=== PATIENT | male | born 1955 | race Caucasian/White ===

== ENCOUNTER 2022-09-27 12:33 | Inpatient (IN) | payer MEDICARE, BC ==
[~2022-09-27] VITALS: Ht 182.9 cm; Wt 76.7 kg
[2022-09-27] MEDS ORDERED: MAGNESIUM HYDROXIDE 30 ML UDC PO PRN (13:30)
[2022-09-27] MEDS ORDERED: BLOOD SUGAR DIAGNOSTIC 1 EACH STRIP IN ONE (13:30)
[2022-09-27] MEDS ORDERED: ZOLPIDEM TARTRATE 5 MG TABLET PO PRN (13:30)
[2022-09-27] MEDS ORDERED: MAG HYDROX/AL HYDROX/SIMETH 30 ML UDC PO PRN (13:30)
[2022-09-27] MEDS ORDERED: ACETAMINOPHEN 325 MG TABLET PO PRN (13:30)
[2022-09-27] MEDS ORDERED: NORT25CA PO (14:11)
[2022-09-27] MEDS ORDERED: PROP10TA10 PO (14:11)
[2022-09-27] MEDS ORDERED: TRAM50TA2 PO (14:11)
[2022-09-27] MEDS ORDERED: LOSA1TAB36 PO (14:11)
[2022-09-27] MEDS ORDERED: LORA-259 PO (14:11)
[2022-09-27] MEDS ORDERED: NORT10CA PO (14:11)
[2022-09-27] MEDS ORDERED: AMLO-212 PO (14:11)
[2022-09-27] MEDS ORDERED: ALPR0.25 PO (14:11)
[2022-09-27] MEDS ORDERED: METH750T3 PO (14:11)
--- NOTE | 2022-09-27 14:12 | NUR ---
RN-CO: PATIENT IS COOPERATIVE , ALERT AND ORIENTED X 3-4. DURING ADMISSION,HE HAS APPROPRIATE AFFECT AND WELL GROOMED. LOOKS EASILY OVERWHELMED. HE STATED HE IS DEPRESSED AND EASILY GETS FRUSTRATED BECAUSE OF HIS BODY PAIN AND IF THINGS ARE DISORGANIZED.HE DENIED SI. HI, AH,VH. NOTIFIED DR WESTBROOK AND ORDER TO PUT HIS ADMITTING ORDERS,NOTED AND CARRIED OUT. PATIENT BEFORE ENTERING GPS UNIT SIGNED THE VOLUNTARY FORM. DISCUSSED HIS RIGHTS A PATIENT AND BOOKLET WAS GIVEN. ALL BELONGINGS WERE SCREENED FROM [employer] AND WAS KEPT IN [address]. HIS VALUABLES WERE TAKEN TO SAFE. [employer]plITTER ORIENTED HIM IN THEUNIT, PT CONTRACTED FOR SAFETY.
--- NOTE | 2022-09-27 14:15 | NUR ---
ANABELLE Initial Discharge Note: Patient will discharge back home located at [address], [place] [address]; ([phone]). Pt stated that he lives with Belle ([phone]) but reported that she is currently at a facility due to health issues. He reported he would want to return back home upon discharge. ANABELLE will work with the MD, family, and pt to help coordinate appropriate discharge.
--- NOTE | 2022-09-27 14:15 | NUR ---
ANABELLE Clinical Note: Pt is a voluntary pt. Pt was brought to the hospital due to feeling depressed and having suicidal thoughts. Patient will discharge back home located at [address] [place] [address]; ([phone]). Pt stated that he lives with Belle ([phone]) but reported that she is currently at a facility due to health issues. He reported he would want to return back home upon discharge.
--- NOTE | 2022-09-27 15:17 | NUR ---
ANABELLE Family Contact: ANABELLE spoke with patient's Belle ([phone]) and discussed patient's who stated that she is at a residential program currently getting her treatment. She stated that pt has been sober for 8 years but he has his moments to wanting to drink. 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 She shared that he has been depressed but she has a lot personal problems herself and is unable to care for him. She stated that she has turned into his mother. She requested for this writer editor to find pt a residential program.
--- NOTE | 2022-09-27 15:29 | NUR ---
Social Work Note/Substance Abuse Intervention: Patient was provided with a brief substance abuse intervention and referred to [facility] ([phone]), [facility] ([phone]), and [facility] ([phone]) for abusing xanax and ativan.
[2022-09-27 16:00] VITALS: BP 122/72
--- NOTE | 2022-09-27 16:08 | NUR ---
RN-CO: Dr Marquez notified to reconcile home meds.
[2022-09-27] MEDS: LORAZEPAM 1 MG TABLET PO PRN (17:17)
[2022-09-27] MEDS ORDERED: METHOCARBAMOL (750MG) 750 MG TABLET PO PRN (17:30)
[2022-09-27] MEDS ORDERED: TRAMADOL HCL 50 MG TABLET PO PRN (17:30)
[2022-09-27] MEDS ORDERED: PROPRANOLOL HCL 10 MG TABLET PO PRN (17:30)
--- NOTE | 2022-09-27 18:39 | NUR ---
RN NOTES PT REQUESTS TO HAVE HIS 'SOUND MACHINE' WHICH HE USES FOR HIS TINNITUS, EXPLAINED UNIT'S PROTOCOL REGARDING PT'S BELONGINGS BUT STILL WOULD LIKE TO HAVE IT, DR. WESTBROOK INFORMED AND ORDERED THAT PT MAY USE IT, PT SIGNED A WAIVER THAT SAYS THAT HOSPITAL IS NOT RESPONSIBLE FOR IT'S LOSS OR DAMAGE WHILE PT IS USING IT, PT'S 'SOUND MACHINE' GIVEN TO PT.
--- NOTE | 2022-09-27 19:04 | NUR ---
RN CLOSING NOTE PT AWAKE IN BED RESTING. ABLE TO MAKE NEEDS KNOWN. STATES HE IS STILL DEPRESSED BUT THAT MEDS HELPED WITH ANXIETY. PT NOT EXPERIENCING ANY CARDIAC OR RESPIRATORY DISTRESS. ALL NEEDS MET AT THIS TIME. WILL ENDORSE NATANAEL TO GLASS SCULLION NURSE.
--- NOTE | 2022-09-27 19:06 | NUR ---
RN CLOSING NOTE PT SLEEPING IN BED, RESPONDS TO NAME. HAS CONFUSION AND CONTINUES TO REFUSE MEDICATION AND FOOD. EXPLAINED THE BENEFITS AND RISKS OF DENYING MEDS AND FOOD. PT BECAME UPSET AND IRRITATED. PT NOT EXPERIENCING ANY CARDIAC OR RESPIRATORY DISTRESS. NO PAIN NOTED AT THIS TIME. ALL NEEDS MET AT THIS TIME. WILL ENDORSE NATANAEL TO POCKET FLAP CREASING MACHINE OPERATOR NURSE.
--- NOTE | 2022-09-27 20:07 | NUR ---
RN notes Called and spoke with Pharmacist regarding losartan to adjust the time. Pt informed that Pt is taking losartan at 1900. Pharmacist adjusted the time. Will continue to monitor.
[2022-09-27 20:11] VITALS: BP 147/90
--- NOTE | 2022-09-27 20:22 | NUR ---
RN notes Pt is complaining of back pain and requesting pain meds. administered tramadol 50 mg/1 tab/po/prn per ordered per Pt' requested for pain. VS is stable. will continue to monitor.
[2022-09-27] MEDS ORDERED: LOSARTAN/HCTZ 50-12.5MG/ 1 EA TABLET PO SCH ×3 (21:00→22:00)
--- NOTE | 2022-09-28 01:01 | NUR ---
RN notes Pt is complaining of headache and requesting med. administered tylenol 650 mg/po/prn as ordered for headache.
[2022-09-28] MEDS: LORAZEPAM 1 MG TABLET PO PRN (03:44)
--- NOTE | 2022-09-28 03:47 | NUR ---
RN notes Pt is feeling anxious and requesting med. administered ativan/po/prn as ordered per Pt requested. safety precautions is maintained. will continue to monitor.
[2022-09-28 08:00] VITALS: BP 129/89
[2022-09-28 08:04] LABS: ALBUMIN 3.6 g/dL (3.4-5.0); BILIRUBIN,TOTAL 0.7 mg/dL (0.2-1.0); CALCIUM, SERUM 9.5 mg/dL (8.5-10.1); CREATININE 0.8 mg/dL (0.6-1.3); POTASSIUM 3.6 mmol/L (3.5-5.1); TOTAL PROTEIN, SERUM 6.6 g/dL (6.4-8.2)
[2022-09-28 08:08] LABS: CHOLESTEROL 176 mg/dL (<200); HDL CHOLESTEROL 64 mg/dL (40-60); LDL 107 mg/dL (0-99); TRIGLYCERIDES 57 mg/dL (30-150)
[2022-09-28 08:51] VITALS: BP 129/89
[2022-09-28] MEDS ORDERED: AMLODIPINE BESYLATE 5 MG TABLET PO SCH (09:00)
[2022-09-28] MEDS ORDERED: GABAPENTIN 100 MG CAPSULE PO SCH (10:00)
[2022-09-28] MEDS ORDERED: DULOXETINE HCL 30 MG CAPSULE.DR PO SCH (10:00)
--- NOTE | 2022-09-28 10:12 | NUR ---
ANABELLE Note: SW gave pt options of residential programs that he was requesting. [facility] is unable to take pt's insurance ([phone]) spoke with Jaspreet who stated that they can have a phone interview with pt at 12PM, 09/28. SW notified pt of this.
--- NOTE | 2022-09-28 11:28 | NUR ---
RN NOTE PT C/O ABDOMINAL SPASM AND PAIN WITH PAIN SCALE LEVEL OF 8/10 AND REQUESTED FOR A MUSCLE SPASM MEDICATION. ROBAXIN 750MG 1 TAB PO GIVEN ORDERED TID PRN FOR MUSCLE SPASM. WILL MONITOR AND REASSESS PT.
--- NOTE | 2022-09-28 12:10 | NUR ---
Pt. wanted to be discharged and will go back to [facility]. Per pt. he is on intense anxiety because of the environment and have a migraine headache. Per pt. his friend will come to pick him up. Dr. Pate made aware and ordered D/C pt. AMA. Pt. denies suicidal and homicidal and Dr. Marquez made aware.
--- NOTE | 2022-09-28 12:31 | NUR ---
SW Discharge Note: Patient will be discharged AMA back home located at [address] [address]; ([phone]). Patients friend Christi ([phone]) picking pt up at 12:30PM. Patient is happy to be going back home. Patient is alert and oriented x4. Patient denies suicidal or homicidal ideation. Patient denies visual/land examiner hallucinations. Patient will follow up with ([facility]) Dr. Linda Bolanos located at [address] [address]; . Patient presents with euthymic mood and congruent affect.
--- NOTE | 2022-09-28 13:10 | NUR ---
AMA GPS RN NOTE PT WAS DISCHARGED AGAINST MEDICAL ADVICE. NURSE AND CHARGED NURSE EXPLAINED TO THE PT THAT HE IS STILL NOT STABLE TO LEAVE AND ALSO EXPLAINED THE RISK OF LEAVING AGAINST MEDICAL ADVICE BUT PT IS ADAMANT AND STILL WANTS TO LEAVE THE HOSPITAL. PT A/O X4, ABLE TO MAKE NEEDS KNOWN. PT DENIES VISUAL/AUDITORY HALLUCINATIONS. PT DENIES SUICIDAL OR HOMICIDAL IDEATION. PT IS ON ROOM AIR, TOLERATING WELL. NO SOB NOTED. NOT IN ANY SIGN OF RESPIRATORY DISTRESS. VITAL SIGNS TAKEN, STABLE, AND RECORDED. PT REFUSED BODY ASSESSMENTS AND PHOTOGRAPHS OF SKIN ISSUES. ALL BELONGINGS ACCOUNTED FOR AND WAS GIVEN TO THE PT INCLUDING HIS MONEY IN THE AMOUNT $260. DISCHARGED INSTRUCTIONS AND HEALTH TEACHINGS EXPLAINED TO THE PT AND PT VERBALIZED UNDERSTANDING. PT LEFT THE UNIT AT 1255 AMBULATORY ACCOMPANIED BY CHARGE NURSE, ELOISA. PT WAS PICKED UP BY HIS FRIENDS, CARLOS HELLER AND PATRICIO HELLER. MD AND CHARGED NURSE AWARE OF AMA DISCHARGED.
== END 2022-09-28 12:55 | disposition left against medical advice (07) | DRG 882 ==
LOC: GPS 12:33
PROVIDERS: ADMIT Psychiatry & Neurology Psychiatry; ATTEND Internal Medicine
DX: F43.23 Adjustment disorder with mixed anxiety and depressed mood (principal); F32.9 Major depressive disorder, single episode, unspecified; F45.0 Somatization disorder; F41.9 Anxiety disorder, unspecified; F41.1 Generalized anxiety disorder; G89.4 Chronic pain syndrome; G43.909 Migraine, unspecified, not intractable, without status migrainosus; Z91.81 History of falling; M47.26 Other spondylosis with radiculopathy, lumbar region; Z79.899 Other long term (current) drug therapy; Z73.6 Limitation of activities due to disability; R53.1 Weakness; R27.8 Other lack of coordination
CPT/HCPCS: 36415; 80053-TC; 80061-TC; 82962-TC